=== PATIENT | female | born 1970 | race Caucasian/White ===

== ENCOUNTER 2016-11-26 14:34 | Emergency (ER) | payer BC ==
[~2016-11-26] VITALS: Ht 160 cm; Wt 57.7 kg
[~2016-11-26 14:34] MED LIST: AGMUNK; BCPILLS PO; BNT10 PO; DIPH-416 PO; IBUP-1428 PO; POTA-327 PO; TRAM-10 PO
[2016-11-26 14:49] VITALS: TEMP 36.8; Ht 160 cm; Wt 57.7 kg
[2016-11-26] MEDS ORDERED: METOCLOPRAMIDE HCL INJ 5 MG/ML 2 ML VIAL IV STA (14:55)
[2016-11-26] MEDS ORDERED: DiphenhydrAMINE HCL 50 MG/ML VIAL IV STA (14:55)
[2016-11-26] MEDS ORDERED: SODIUM CHLORIDE 0.9% 1000ML 1,000 ML IV STA (14:55)
[2016-11-26] MEDS ORDERED: DEXAMETHASONE SOD INJ 10 MG/ML VIAL IV ONE (15:00)
--- NOTE | 2016-11-26 15:35 | DIAGNOSTIC IMAGING REPORT ---
HEAD CT NONCONTRAST CT DOSE: HISTORY: Headache. TECHNIQUE: Multiaxial CT images of the head were performed without the use of intravenous contrast. Automated exposure control was utilized for this study. Comparison: None. Findings: The paranasal sinuses and mastoid air cells are clear. The calvarium and skull base are intact. The ventricles and sulci are within normal limits. There is no mass, hematoma, midline shift, or acute infarct. Impression: No acute intracranial abnormality. Electronically signed by: Jaswinder Phillips M.D. 11/26/2016 3:32 PM Dictated Date/Time: 11/26/2016 3:29 PM
--- NOTE | 2016-11-26 15:38 | DIAGNOSTIC IMAGING REPORT ---
CT SCAN OF THE PARANASAL SINUSES CLINICAL HISTORY: Headache. COMPARISON STUDY: No priors. TECHNIQUE: High-resolution CT scan of the paranasal sinuses is performed. Images are reviewed in the axial, sagittal, and coronal planes. IV contrast was not administered for this examination. FINDINGS: Maxillary antra: Clear bilaterally. Anterior ethmoid sinuses: Clear. Posterior ethmoid sinuses: Clear. Sphenoid sinuses: Clear. Frontal sinuses: Clear. Ostiomeatal complexes: Patent bilaterally. Frontoethmoidal and sphenoethmoidal recesses: Patent bilaterally. Carotid arteries: The carotid arteries are protuberant but covered and without septal attachments. Ethmoid roofs: The ethmoid roofs are symmetric. Nasal turbinates: Normal in appearance. Nasal septum: There is mild rightward deviation of the bony nasal septum. Optic nerves: Covered. Orbits: The bony orbits are intact. Orbital contents are normal in appearance. Calvarium: The imaged calvarium is normal in appearance Mastoid air cells: Well pneumatized. Brain parenchyma: Partially visualized brain parenchyma is within normal limits. IMPRESSION: There is no paranasal sinus disease. See above. Electronically signed by: Javier Lewis M.D. 11/26/2016 3:36 PM Dictated Date/Time: 11/26/2016 3:32 PM
[2016-11-26 15:47] LABS: BASO % 0.1 %; BASO ABS # 0.01 K/uL (0-0.2); COMPLETE YES; EOS % 0.1 %; HEMATOCRIT 42.6 % (37-47); IG% 0.2 %; LYMPH % 3.1 %; LYMPH ABS # 0.37 K/uL (1.2-3.4); MEAN CELL VOLUME 86.1 fL (80-100); MEAN CORPUSCULAR HEMOGLOBIN 30.5 pg (25-34); MEAN CORPUSCULAR HGB CONC 35.4 g/dl (32-36); MEAN PLATELET VOLUME 9.7 fL (7.4-10.4); MONO % 3.3 %; NEUT % 93.2 %; PLATELET COUNT 286 K/uL (130-400); RED BLOOD COUNT 4.95 M/uL (4.2-5.4); WHITE BLOOD COUNT 11.96 K/uL (4.8-10.8)
[2016-11-26 16:08] LABS: BUN/CREATININE RATIO 15.2 (10-20); CREATININE 0.71 mg/dl (0.60-1.20); POTASSIUM 3.4 mmol/L (3.5-5.1)
[2016-11-26] MEDS ORDERED: KETOROLAC TROMETHAMINE 30 MG/ML VIAL IV STA (16:39)
[2016-11-26 16:52] VITALS: BP 128/82; PULSE 87; O2SAT 99
[2016-11-26 17:09] LABS: PREG INTERNAL NEGATIVE QC NEG CLEAR BACKGROUND; PREG INTERNAL POSITIVE QC POS CONTROL LINE
--- NOTE | 2016-11-26 17:12 | EMERGENCY ROOM VISIT NOTE ---
History First contact with patient: 14:52 Chief Complaint: HEADACHE Stated Complaint: CLIFTON, NAUSEA, OTHERS History of Present Illness The patient is a 46 year old female who presents to the Emergency Room with complaints of nausea, diarrhea, headache, sinus pain and congestion for the past few days that is steadily getting worse. She describes a headache as throbbing, ranging in severity 8 at 10 to the frontal region. Nothing makes it better or worse. It does not radiate. She had sinus surgery before. Patient denies fevers, sore throat, chest pain, dyspnea, neck stiffness, numbness, tingling, localized weakness, sudden onset headache, cough, abdominal pain. Review of Systems See HPI for pertinent positives & negatives. A total of 10 systems reviewed and were otherwise negative. Past Medical/Surgical History Migraine, pancreatitis, sinus surgery Social History Smoking Status: Never Smoker Smokeless Tobacco Use: No Drug Use: none Marital Status: Current/Historical Medications Scheduled Control Pills ( Control Pills), 1 TAB PO DAILY Dicyclomine Hcl (Bentyl *), 10 MG PO QID Diphenoxylate/Atropine (Lomotil), 1 TAB PO PRN Tramadol (Ultram), 50 MG PO PRN Miscellaneous Medications Amoxicillin/Clavulanate Potas (Augmentin Unknown Dose) Ibuprofen (Motrin), 800 MG PO Potassium Ext Rel (Klor-Con), 10 MEQ PO Allergies Coded Allergies: Hydrocodone (Verified Allergy, Intermediate, 04/20/13) Oxycodone (Verified Allergy, Intermediate, 04/20/13) SHELLFISH (Verified Allergy, Intermediate, 09/11/11) Physical Exam Vital Signs Date Time Temp Pulse Resp B/P Pulse Ox O2 Delivery O2 Flow Rate FiO2 11/26/16 16:52 87 16 128/82 99 Room Air 11/26/16 14:49 36.8 97 16 145/85 99 Room Air Physical Exam VITALS: Vitals are noted on the nurse's note and reviewed by myself. Vital signs stable. GENERAL: Pleasant female, in no acute distress, nondiaphoretic, well-developed well-nourished. SKIN: The skin was without rashes, erythema, edema, or bruising. There is no tenting of the skin. Capillary reflex less than 2 seconds. HEAD: Normocephalic atraumatic. EARS: External auditory canals clear, tympanic membranes pearly kim without erythema or effusion bilaterally. EYES: Pupils equal round and reactive to light and accommodation. Conjunctivae without injection, sclerae without icterus. Extraocular movements intact. NOSE: Patent, turbinates without inflammation or discharge. Bilateral frontal sinus tenderness. MOUTH: Mucous membranes moist Pharynx without erythema or exudate. Uvula midline. Airway patent. Tongue does not deviate. NECK: Supple without nuchal rigidity. No lymphadenopathy. No thyromegaly. Cervical spine is nontender. No JVD. HEART: Regular rate and rhythm without murmurs gallops or rubs. LUNGS: Clear to auscultation bilaterally without wheezes, rales or rhonchi. No dullness to percussion. No retractions or accessory muscle use. ABDOMEN: Positive bowel sounds x 4. Normal tympanic percussion. Soft, nontender, without masses or organomegaly. Roy sign negative. No guarding or rebound tenderness. MUSCULOSKELETAL: No muscle atrophy, erythema, or edema noted. NEURO: Patient was alert and oriented to person place and time. Normal sensation to light and sharp touch. No focal neurological deficits. Cranial nerves II-12 grossly intact. No pronator drift. Cerebellar exam intact. Medical Decision & Procedures Laboratory Results 11/26/16 15:35 Red Blood Count 4.95, Mean Corpuscular Volume 86.1, Mean Corpuscular Hemoglobin 30.5, Mean Corpuscular Hemoglobin Concent 35.4, Mean Platelet Volume 9.7, Neutrophils (%) (Auto) 93.2, Lymphocytes (%) (Auto) 3.1, Monocytes (%) (Auto) 3.3, Eosinophils (%) (Auto) 0.1, Basophils (%) (Auto) 0.1, Neutrophils # (Auto) 11.15, Lymphocytes # (Auto) 0.37, Monocytes # (Auto) 0.40, Eosinophils # (Auto) 0.01, Basophils # (Auto) 0.01 11/26/16 15:35 Test 11/26/16 15:35 11/26/16 16:14 White Blood Count 11.96 K/uL (4.8-10.8) Red Blood Count 4.95 M/uL (4.2-5.4) Hemoglobin 15.1 g/dL (12.0-16.0) Hematocrit 42.6 % (37-47) Mean Corpuscular Volume 86.1 fL (80-100) Mean Corpuscular Hemoglobin 30.5 pg (25-34) Mean Corpuscular Hemoglobin Concent 35.4 g/dl (32-36) Platelet Count 286 K/uL (130-400) Mean Platelet Volume 9.7 fL (7.4-10.4) Neutrophils (%) (Auto) 93.2 % Lymphocytes (%) (Auto) 3.1 % Monocytes (%) (Auto) 3.3 % Eosinophils (%) (Auto) 0.1 % Basophils (%) (Auto) 0.1 % Neutrophils # (Auto) 11.15 K/uL (1.4-6.5) Lymphocytes # (Auto) 0.37 K/uL (1.2-3.4) Monocytes # (Auto) 0.40 K/uL (0.11-0.59) Eosinophils # (Auto) 0.01 K/uL (0-0.5) Basophils # (Auto) 0.01 K/uL (0-0.2) RDW Standard Deviation 43.7 fL (36.4-46.3) RDW Coefficient of Variation 13.9 % (11.5-14.5) Immature Granulocyte % (Auto) 0.2 % Immature Granulocyte # (Auto) 0.02 K/uL (0.00-0.02) Anion Gap 8.0 mmol/L (3-11) Est Creatinine Clear Calc Drug Dose 82.7 ml/min Estimated GFR () 119.2 Estimated GFR (Non- 102.9 BUN/Creatinine Ratio 15.2 (10-20) Calcium Level 9.0 mg/dl (8.5-10.1) Human Chorionic Gonadotropin, Qual NEG (NEG) Medications Administered Medications (Trade) Dose Ordered Sig/Lucas Route Start Time Stop Time Status Last Admin Dose Admin Metoclopramide HCl 10 mg 10 mg NOW STAT IV 11/26/16 14:55 11/26/16 14:57 DC 11/26/16 15:57 10 MG Sodium Chloride (Nss 1000ml) 1,000 ml @ 999 mls/hr Q1H1M STAT IV 11/26/16 14:55 11/26/16 15:55 DC 11/26/16 14:55 999 MLS/HR Diphenhydramine HCl (Benadryl Inj) 12.5 mg NOW STAT IV 11/26/16 14:55 11/26/16 14:57 DC 11/26/16 15:56 12.5 MG Dexamethasone Sodium Phosphate (Decadron Inj) 10 mg NOW ONCE IV 11/26/16 15:00 11/26/16 15:01 DC 11/26/16 15:58 10 MG Ketorolac Tromethamine (Toradol Inj) 30 mg NOW STAT IV 11/26/16 16:39 11/26/16 16:40 DC 11/26/16 16:52 30 MG ED Course Prior records/ancillary studies reviewed. Additional history obtained from family. Triage Nursing notes reviewed. The patient's history was concerning for headache. Differential diagnosis: Etiologies such as migraine headache, meningitis, sinusitis, CO exposure, ICH, SAH, infection, tumor, headache, sinus thrombosis, arterial dissection, as well as others were entertained. Physical examination findings: As above. Non-focal. ER treatment provided: Reglan, Benadryl, Decadron, IV fluids On reassessment the patient felt better. Diagnostics interpreted by me: The labs revealed mild leukocytosis. No worrisome electrolyte abnormality Imaging studies: HEAD CT NONCONTRAST CT DOSE: HISTORY: Headache. TECHNIQUE: Multiaxial CT images of the head were performed without the use of intravenous contrast. Automated exposure control was utilized for this study. Comparison: None. Findings: The paranasal sinuses and mastoid air cells are clear. The calvarium and skull base are intact. The ventricles and sulci are within normal limits. There is no mass, hematoma, midline shift, or acute infarct. Impression: No acute intracranial abnormality. Electronically signed by: Jaswinder Phillips M.D. 11/26/2016 3:32 PM This appears to be consistent with migraine. Patient was neurovascularly and neurologically intact. She is well-appearing. She is able tolerate fluids. She is advised to rest, stay well-hydrated and to follow-up family care in a few days or here in the ER sooner for headache, fevers, neck stiffness, worsening signs or symptoms or as needed By the evaluation outlined above emergent etiologies such as meningitis, sinusitis, CO exposure, ICH, SAH, infection, temporal arteritis, tumor, sinus thrombosis, arterial dissection, as well as others were deemed relatively unlikely. The pt informed about the findings as listed above. All questions were answered and pleased with the treatment. Return instructions were outlined and the patient was discharged in stable condition. Referral: The patient was referred back to their primary care physician for follow-up in 2 to 3 days for a recheck of the current condition. Case reviewed with my attending Medical Decision As above Impression Primary Impression: Migraine Departure Information Dispostion Home / Self-Care Condition GOOD Referrals Raudel Villagran M.D. (PCP) Patient Instructions My [facility] Additional Instructions DO NOT drive, drink alcohol, operate machinery, or perform dangerous activities today. You were given medications in the ER that can affect your ability to safely function or operate a vehicle. Rest today in a quiet, peaceful, dark environment and get a full 8-10 hrs of sleep tonight. Avoid loud noises, smoke/smoking, alcohol, bright lights, stress, or physical exertion today to minimize the chance the headache may return. Continue current medications. Ibuprofen(Motrin, Advil) may be used for fever or pain. Use 600mg every six hours as needed. Take with food. Avoid using more than 2400mg in a 24 hour period. Do not use 2400mg per day for more than three consecutive days without physician direction. Prolonged inappropriate use can lead to stomach upset or ulcers. (AND/OR) Acetaminophen(Tylenol) may be used for fever or pain. Use 1000mg every six hours as needed. Avoid using more than 3000mg in a 24 hour period. Return to the ER for passing out, worsening headache, vision problems, neck stiffness/pain, fevers, vomiting, worsening of your condition, or as needed. Follow up with your primary physician and/or a neurologist in 2-3 days for a recheck of your current condition. Problem Qualifiers Primary Impression: Migraine Migraine type: without aura Status migrainosus presence: without status migrainosus Intractability: not intractable Qualified Codes: G43.009 - Migraine without aura, not intractable, without status migrainosus
== END 2016-11-26 17:28 | disposition home or self-care (01) ==
LOC: C.EDB 14:36
DX: G43.009 Migraine without aura, not intractable, without status migrainosus (principal); R11.0 Nausea; R19.7 Diarrhea, unspecified; R09.81 Nasal congestion; Z79.3 Long term (current) use of hormonal contraceptives; Z79.899 Other long term (current) drug therapy